=== PATIENT | female | born 1995 | race Caucasian/White ===

== ENCOUNTER 2018-06-30 06:03 | Emergency (ER) | payer SELFPAY ==
[~2018-06-30] VITALS: Ht 152.4 cm; Wt 82.5 kg
[2018-06-30] MEDS ORDERED: SODIUM CHLORIDE 0.9% 1,000 ML IV ONE (07:08)
[2018-06-30] MEDS ORDERED: METOCLOPRAMIDE HCL 10MG/2ML VIAL IV ONE (07:15)
[2018-06-30 07:58] LABS: CLARITY URINE CLOUDY (CLEAR); COLOR URINE YELLOW (YELLOW); KETONES URINE TRACE (NEGATIVE); NITRITE URINE NEGATIVE (NEGATIVE); OCCULT BLOOD URINE NEGATIVE (NEGATIVE); PH URINE 6.5 (4.5-8.0); PROTEIN URINE TRACE (NEGATIVE); SPECIFIC GRAVITY URINE 1.035 (1.005-1.030)
[2018-06-30 07:59] LABS: LEUKOCYTE ESTERASE URINE 2+ (NEGATIVE)
[2018-06-30 08:04] LABS: BASOPHILS % 0.4 % (0.0-2.0); EOSINOPHILS % 1.4 % (0.0-5.0); HEMATOCRIT. 39.6 % (36.0-48.0); HEMOGLOBIN. 13.6 g/dL (12.0-16.0); LYMPHOCYTES % 19.6 % (20.0-50.0); MEAN CORPUSCULAR HEMOGLOBIN 31.3 pg (28.0-32.0); MEAN PLATELET VOLUME 9.2 fl (7.4-10.4); MONOCYTES % 9.4 % (2.0-8.0); NEUTROPHILS % 69.2 % (40.0-76.0); PLATELET 218 x1000/uL (130-400); RED BLOOD CELL COUNT 4.35 mill/uL (4.2-5.4); RED CELL DISTRIBUTION WIDTH 12.9 % (11.6-14.6)
[2018-06-30 08:11] LABS: CHLORIDE 109 mEq/L (98-107)
[2018-06-30 08:35] LABS: B-HCG QUANTITATIVE 46133 mIU/mL (<3)
[2018-06-30 09:31] VITALS: BP 102/52
== END 2018-06-30 09:49 | disposition home or self-care (01) ==
LOC: ER 06:03
DX: O23.41 Unspecified infection of urinary tract in pregnancy, first trimester (principal); O99.611 Diseases of the digestive system complicating pregnancy, first trimester; K21.9 Gastro-esophageal reflux disease without esophagitis; Z3A.01 Less than 8 weeks gestation of pregnancy
CPT/HCPCS: 36415; 80053; 81003; 81025; 84702; 85025; 96361; 96374; 99283; J2765; J7030